=== PATIENT | female | born 1960 | race Caucasian/White ===

== ENCOUNTER 2017-08-12 09:23 | Outpatient (CLI) | payer OTHER | END 2017-08-12 09:24 | disposition home or self-care (01) | LOC: DTY/OP 09:23 | PROVIDERS: ATTEND Surgery | DX: E66.01 Morbid (severe) obesity due to excess calories (principal) | CPT/HCPCS: 97802 ==

== ENCOUNTER 2017-09-12 08:22 | Outpatient (CLI) | payer OTHER | END 2017-09-12 08:23 | disposition home or self-care (01) | LOC: DTY/OP 08:22 | PROVIDERS: ATTEND Surgery | DX: Z48.815 Encounter for surgical aftercare following surgery on the digestive system (principal); E66.01 Morbid (severe) obesity due to excess calories; Z98.84 Bariatric surgery status | CPT/HCPCS: 97802 ==

== ENCOUNTER 2017-10-13 08:33 | Outpatient (CLI) | payer OTHER | END 2017-10-13 08:34 | disposition home or self-care (01) | LOC: DTY/OP 08:33 | PROVIDERS: ATTEND Surgery | DX: E66.01 Morbid (severe) obesity due to excess calories (principal); Z98.84 Bariatric surgery status | CPT/HCPCS: 97802 ==

== ENCOUNTER 2017-11-17 08:45 | Outpatient (CLI) | payer OTHER | END 2017-11-17 08:46 | disposition home or self-care (01) | LOC: DTY/OP 08:45 | PROVIDERS: ATTEND Surgery | DX: E66.01 Morbid (severe) obesity due to excess calories (principal) | CPT/HCPCS: 97802 ==

== ENCOUNTER 2017-11-21 08:00 | Inpatient (IN) | payer OTHER ==
[2017-11-21 08:23] VITALS: BMI 36.2
[2017-12-01] MEDS ORDERED: ePHEDrine/0.9% NaCl/PF SYRINGE 50 mg/10 ml ONE (09:29)
[2017-12-01] MEDS ORDERED: PHENYLEPHRINE-NS 100 MCG/ML 10 ML SYRINGE ONE (09:29)
[2017-12-01] MEDS ORDERED: Ondansetron HCl/PF 4 MG/2 ML Vial ONE (09:29)
[2017-12-01] MEDS ORDERED: Dexamethasone 20 MG/5 ML VIAL ONE (09:29)
[2017-12-01] MEDS ORDERED: Ketorolac Tromethamine 30 MG/ML VIAL ONE (09:29)
[2017-12-01] MEDS ORDERED: Glycopyrrolate 0.2 MG/ML 5 ML SYRINGE ONE (09:29)
[2017-12-01] MEDS ORDERED: Lidocaine 1% PF 5 ML VIAL ONE (09:29)
[2017-12-01] MEDS ORDERED: PROPOFOL 200 MG/20 ML VIAL ONE (09:29)
[2017-12-01] MEDS ORDERED: Heparin 5,000 UNITS/ML VIAL ONE (10:31)
[2017-12-01] MEDS ORDERED: CEFAZOLIN/Water 2 GM/20 ML SYRINGE ONE (10:31)
[2017-12-01] MEDS ORDERED: Fentanyl 100 MCG/2 ML VIAL ONE ×4 (12:43→15:21)
[2017-12-01] MEDS ORDERED: Bupivacaine/Epinephrine 0.25% 30 ML VIAL ONE ×2 (12:52→12:53)
[2017-12-01] MEDS ORDERED: Ondansetron HCl/PF 4 MG/2 ML Vial IVP PRN ×3 (14:50→15:44)
[2017-12-01] MEDS ORDERED: Promethazine HCl 25 MG/ML VIAL SLOW IVP PRN (14:50)
[2017-12-01] MEDS ORDERED: Promethazine HCl 25 MG/ML VIAL IM PRN ×3 (14:50→15:44)
[2017-12-01] MEDS ORDERED: Naloxone HCl 0.4 mg/ml Vial IV PRN (15:39)
[2017-12-01] MEDS ORDERED: diphenhydrAMINE 50 MG/ML VIAL IVP PRN ×2 (15:39→15:44)
[2017-12-01] MEDS ORDERED: diphenhydrAMINE 25 MG CAP PO PRN (15:39)
[2017-12-01] MEDS ORDERED: Zolpidem Tartrate 5 MG TAB PO PRN (15:39)
[2017-12-01] MEDS ORDERED: fentaNYL Citrate/PF 2,000 MCG in Sodium Chloride 0.9% 60 ML IV PRN (15:39)
[2017-12-01] MEDS ORDERED: diphenhydrAMINE 50 MG/ML VIAL IM PRN (15:39)
[2017-12-01] MEDS ORDERED: Dextrose 50% Abboject 50 ML SYRINGE SLOW IVP PRN (15:44)
[2017-12-01] MEDS ORDERED: Ketorolac Tromethamine 30 MG/ML VIAL IVP PRN (15:44)
[2017-12-01] MEDS ORDERED: hydrALAZINE 20 MG/ML VIAL SLOW IVP PRN (15:44)
[2017-12-01] MEDS ORDERED: Dextrose 5% in Water 1,000 ML IV PRN (15:44)
[2017-12-01] MEDS ORDERED: Communication Order-Pharmacy FS SCH (15:45)
[2017-12-01] MEDS: Acetaminophen 1,000 MG in Premix Bag 1 BAG IVPB SCH ×2 (17:24→21:27)
[2017-12-01] MEDS: D5 1/2 NS w/20 mEq KCL 1,000 ML IV SCH (17:24)
[2017-12-01] MEDS ORDERED: Enoxaparin Sodium 40 MG/0.4 ML SYRINGE SC SCH (21:00)
[2017-12-01] MEDS ORDERED: Atenolol 25 MG TAB PO SCH (21:00)
[2017-12-01] MEDS ORDERED: Losartan 25 MG TAB PO SCH (21:00)
[2017-12-01] MEDS ORDERED: ALPRAZOLAM 0.5 MG PO SCH (21:00)
[2017-12-02] MEDS: Acetaminophen 1,000 MG in Premix Bag 1 BAG IVPB SCH ×2 (04:59→08:05)
[2017-12-02] MEDS: D5 1/2 NS w/20 mEq KCL 1,000 ML IV SCH (04:59)
[2017-12-02 06:18] LABS: Anion Gap 15 mmol/L (10-20); BUN (Urea Nitrogen) 11 mg/dL (9.8-20.1); Calc. Creatinine Clearance 127 mL/min (70-130); Carbon Dioxide 20 mmol/L (22-29); Chloride 106 mmol/L (98-107); Estimated GFR-MDRD 81; Glucose 143 mg/dL (70-105); Potassium 5.1 mmol/L (3.5-5.1); Sodium 136 mmol/L (136-145)
[2017-12-02 06:36] LABS: Band 10 % (5-11); Hemoglobin 12.4 g/dL (12.0-16.0); Lymphocytes 11 % (21-51); MDiff Complete? YES; Mean Corpuscular Hemoglobin 31.1 pg (27.0-31.0); Mean Corpuscular Volume 91.4 fL (78.0-98.0); Mean Platelet Volume 7.4 fL (7.4-10.4); Monocytes 2 % (0-10); Neutrophil 77 % (42-75); PLT Morphology Comment Appears Adequate; Platelet Count 245 thou/uL (130-400); RBC Distribution Width 11.1 % (11.5-14.5); RBC Morphology Normal
[2017-12-02] MEDS ORDERED: Hydrocodone-Acetamin 15 ML UDCUP PO PRN (08:00)
[2017-12-02] MEDS ORDERED: Pantoprazole 40 MG VIAL IVP SCH (09:00)
[2017-12-02 11:11] VITALS: BP 119/72; TEMP 98.1
== END 2017-12-02 11:07 | disposition home or self-care (01) | DRG 621 ==
LOC: SURG B 12-01 09:59
PROVIDERS: ADMIT Surgery; ATTEND Surgery
PROC: 0DB60Z3 Excision of Stomach, Open Approach, Vertical (ICD-10-PCS; principal; 2017-12-01)
PROC: 0DP64CZ Removal of Extraluminal Device from Stomach, Percutaneous Endoscopic Approach (ICD-10-PCS; 2017-12-01)
DX: E66.01 Morbid (severe) obesity due to excess calories (principal); I10 Essential (primary) hypertension
CPT/HCPCS: 36415; 80048; 85025; 88307; 88312; 94760; J0131; J1644; J3010; J7050

== ENCOUNTER 2017-11-21 08:09 | Outpatient (CLI) | payer OTHER ==
[2017-11-21 09:26] LABS: #Basophils 0.1 thou/uL (0.0-0.2); #Eosinphils 0.1 thou/uL (0.0-0.7); #Lymphocytes 2.4 thou/uL (1.20-3.40); #Monocytes 0.5 thou/uL (0.11-0.59); #Neutrophils 6.3 thou/uL (1.40-6.50); %Basophils 0.7 % (0.0-1.0); %Eosinophils 1.1 % (0.0-10.0); %Lymphocytes 25.3 % (21.0-51.0); %Monocytes 4.9 % (0.0-10.0); %Neutrophils 67.9 % (42.0-75.0); Hemoglobin 13.8 g/dL (12.0-16.0); Mean Corpuscular HGB CONC 33.3 g/dL (32.0-36.0); Mean Corpuscular Hemoglobin 30.8 pg (27.0-31.0); Mean Corpuscular Volume 92.5 fL (78.0-98.0); Mean Platelet Volume 7.4 fL (7.4-10.4); Platelet Count 247 thou/uL (130-400); RBC Distribution Width 11.2 % (11.5-14.5); Red Blood Cell (RBC) Count 4.49 mill/uL (4.20-5.40); White Blood Cell (WBC) Count 9.3 thou/uL (4.8-10.8)
[2017-11-21 09:37] LABS: Hemoglobin A1c 4.8 % (4.0-6.0)
[2017-11-21 09:44] LABS: ALT (SGPT) 33 U/L (8-55); AST (SGOT) 25 U/L (5-34); Albumin 4.6 g/dL (3.5-5.0); Alkaline Phosphatase 86 U/L (40-150); Anion Gap 12 mmol/L (10-20); BUN (Urea Nitrogen) 18 mg/dL (9.8-20.1); Bilirubin, Direct 0.5 mg/dL (0.1-0.3); Bilirubin, Total 1.6 mg/dL (0.2-1.2); Calc. Creatinine Clearance 0 mL/min (70-130); Calcium 10.7 mg/dL (7.8-10.44); Carbon Dioxide 30 mmol/L (22-29); Chloride 108 mmol/L (98-107); Estimated GFR-MDRD 78; Globulin 2.4 g/dL (2.4-3.5); Glucose 109 mg/dL (70-105); Potassium 5.3 mmol/L (3.5-5.1); Sodium 145 mmol/L (136-145)
--- NOTE | 2017-11-21 11:09 | RAD ---
CHEST PA AND LATERAL: History: 57-year-old female for pre-operative evaluation. FINDINGS: Heart size is within normal limits. The lungs are clear. There is evidence of a lap band in place. IMPRESSION: No acute intrathoracic disease. Lap band in place. POS: OFF
--- NOTE | 2017-11-21 13:05 | EKG ---
Test Reason : Blood Pressure : / mmHG Vent. Rate : 054 BPM Atrial Rate : 054 BPM P-R Int : 162 ms QRS Dur : 074 ms QT Int : 406 ms P-R-T Axes : 045 048 044 degrees QTc Int : 385 ms Sinus bradycardia Otherwise normal ECG No previous ECGs available Confirmed by LARY CANTU, DR. Vaca ([id number]) on 11/21/2017 1:05:16 PM Referred By: SATYA Confirmed By:DR. Lio BARTH MD
== END 2017-11-21 08:10 | disposition home or self-care (01) ==
LOC: LABBT 08:09
PROVIDERS: ATTEND Surgery
DX: Z01.818 Encounter for other preprocedural examination (principal); T85.858A Stenosis due to other internal prosthetic devices, implants and grafts, initial encounter; E66.01 Morbid (severe) obesity due to excess calories
CPT/HCPCS: 71046; 80053; 80076; 83036; 85025; 93005; 93010

== ENCOUNTER 2018-02-03 08:24 | Outpatient (CLI) | payer OTHER | END 2018-02-03 08:25 | disposition home or self-care (01) | LOC: BICMAMMO 08:24 | PROVIDERS: ATTEND Obstetrics & Gynecology | DX: Z12.31 Encounter for screening mammogram for malignant neoplasm of breast (principal) | CPT/HCPCS: 77063; 77067 ==

== ENCOUNTER 2020-03-15 14:38 | Outpatient (CLI) | payer OTHER ==
--- NOTE | 2020-03-22 11:46 | MMO ---
Bilateral MAMMO Bilat Screen [facility]. CLINICAL HISTORY: Patient is 59 years old and is seen for screening. The patient has no family history of breast cancer. The patient has no personal history of cancer. The patient has a history of Breast reduction. VIEWS: The views performed were: bilateral craniocaudal with tomosynthesis and bilateral mediolateral oblique with tomosynthesis. FILMS COMPARED: The present examination has been compared to prior imaging studies performed at [facility] on 02/16/2019, at [facility] on 02/03/2018, and at [facility] on 08/24/2015 and 12/10/2016. This study has been interpreted with the assistance of computer-aided detection. MAMMOGRAM FINDINGS: There are scattered fibroglandular densities. Benign calcifications are noted bilaterally. There are no suspicious masses, suspicious calcifications, or new areas of architectural distortion. IMPRESSION: THERE IS NO MAMMOGRAPHIC EVIDENCE OF MALIGNANCY. A ROUTINE FOLLOW-UP MAMMOGRAM IN 1 YEAR IS RECOMMENDED. THE RESULTS OF THIS EXAM WERE SENT TO THE PATIENT. ACR BI-RADS Category 2 - Benign finding MAMMOGRAPHY NOTE: 1. A negative mammogram report should not delay a biopsy if a dominant of clinically suspicious mass is present. 2. Approximately 10% to 15% of breast cancers are not detected by mammography. 3. Adenosis and dense breasts may obscure an underlying neoplasm. Reported by: KILLIAN LEMON MD Electonically Signed: [id number]
== END 2020-03-15 14:39 | disposition home or self-care (01) ==
LOC: BICMAMMO 14:38
PROVIDERS: ATTEND Family Medicine
DX: Z12.31 Encounter for screening mammogram for malignant neoplasm of breast (principal); Z98.890 Other specified postprocedural states
CPT/HCPCS: 77063; 77067

== ENCOUNTER 2024-05-13 16:11 | Outpatient (CLI) | payer OTHER | END 2024-05-13 16:12 | disposition home or self-care (01) | LOC: SCSRAD 16:11 | PROVIDERS: ATTEND Family Medicine | DX: M54.2 Cervicalgia (principal); M47.812 Spondylosis without myelopathy or radiculopathy, cervical region | CPT/HCPCS: 72040 ==